=== PATIENT | male | born 1975 | race Two or more races ===

== ENCOUNTER 2022-11-07 08:30 | Emergency (ER) | payer OTHER ==
[~2022-11-07] VITALS: Ht 167.6 cm; Wt 97.5 kg
--- NOTE | 2022-11-07 09:03 | NUR ---
PHLEB AT BEDSIDE FOR BLOOD DRAW
--- NOTE | 2022-11-07 09:11 | NUR ---
DR. JOHNSON AT BEDSIDE
[2022-11-07 09:15] LABS: HEMOGLOBIN 13.8 g/dL (13.5-17.5); MONOCYTES # (AUTO) 0.9 K/uL (0.1-1.30)
[2022-11-07] MEDS ORDERED: GABAPENTIN 100 MG CAPSULE ONE (09:25)
[2022-11-07 09:27] LABS: CALCIUM, SERUM 8.8 mg/dL (8.5-10.1); CARBON DIOXIDE 28 mmol/L (21-32); CHLORIDE 101 mmol/L (98-107); GLUCOSE 138 mg/dL (74-106); POTASSIUM 3.8 mmol/L (3.5-5.1); SODIUM SERUM 136 mmol/L (136-145); UREA NITROGEN, BLOOD 16 mg/dL (7-18)
[2022-11-07] MEDS ORDERED: GABAPENTIN 100 MG CAPSULE PO ONE (09:30)
--- NOTE | 2022-11-07 09:38 | NUR ---
PIPE INSULATOR AT BEDSIDE FOR XRAY
[2022-11-07 09:51] LABS: ALANINE AMINOTRANSFERASE 29 U/L (12-78); ALBUMIN 3.6 g/dL (3.4-5.0); ALKALINE PHOSPHATASE 92 U/L (46-116); ASPARTATE AMINOTRANSFERASE 25 U/L (15-37); BILIRUBIN,DIRECT 0.1 mg/dL (0.0-0.2); BILIRUBIN,TOTAL 0.2 mg/dL (0.2-1.0); TOTAL PROTEIN, SERUM 7.6 g/dL (6.4-8.2)
[2022-11-07 11:41] LABS: BASOPHILS % (AUTO) 0.3 % (0.0-2.0); EOSINOPHILS % (AUTO) 2.6 % (0.0-6.0); HEMATOCRIT 43 % (39-51); LYMPHOCYTES # (AUTO) 2.4 K/uL (0.8-4.8); LYMPHOCYTES % (AUTO) 23.2 % (20.0-44.0); MEAN CORPUSCULAR HGB CONC 32 g/dl (31.0-36.0); MEAN CORPUSCULAR VOLUME 92 fL (80-96); MONOCYTES % (AUTO) 8.9 % (2.0-12.0); NEUTROPHILS # (AUTO) 6.6 K/uL (1.8-8.9); PLATELET COUNT (AUTO) 235 K/uL (150-450); RED BLOOD CELL COUNT(AUTO) 4.61 MIL/uL (4.5-6.0); WHITE BLOOD COUNT (AUTO) 10.1 K/uL (4.3-11.0)
[2022-11-07] MEDS ORDERED: ATOR40TA PO (12:11)
[2022-11-07] MEDS ORDERED: GABA-536 PO (12:11)
[2022-11-07 12:35] VITALS: BP 139/72
== END 2022-11-07 12:36 | disposition home or self-care (01) ==
LOC: ER 09:26
DX: G62.9 Polyneuropathy, unspecified (principal); R60.0 Localized edema; F17.210 Nicotine dependence, cigarettes, uncomplicated; J45.909 Unspecified asthma, uncomplicated; Z60.2 Problems related to living alone; Z79.899 Other long term (current) drug therapy
CPT/HCPCS: 36415; 71045-TC; 73610-TC; 80048-TC; 80076-TC; 83880; 84484-TC; 85025-TC; 85730-TC

== ENCOUNTER 2023-04-28 18:40 | Inpatient (IN) | payer OTHER ==
[~2023-04-28] VITALS: Ht 170.2 cm; Wt 98.4 kg
[~2023-04-28 18:40] MED LIST: ATOR40TA PO; GABA-536 PO
[2023-04-28] MEDS ORDERED: methylPREDNISolone SOD SUCC 125 MG/2ML VIAL ONE (19:27)
[2023-04-28] MEDS ORDERED: methylPREDNISolone SOD SUCC 125 MG/2ML VIAL IV ONE (19:30)
[2023-04-28] MEDS ORDERED: IPRATROPIUM NEB FS 0.5 MG/2.5 ML AMPUL.NEB NEB ONE (19:30)
[2023-04-28] MEDS ORDERED: Magnesium 1GM/D5W 100ML PREMIX 200 ML IV ONE (19:30)
[2023-04-28] MEDS ORDERED: ALBUTEROL FS 2.5 MG/3 ML VIAL.NEB CONTNEB ONE (19:30)
[2023-04-28] MEDS ORDERED: Magnesium 1GM/D5W 100ML PREMIX 100 ML IV ONE (19:33)
[2023-04-28] MEDS ORDERED: ALBUTEROL FS 2.5 MG/3 ML VIAL.NEB ONE (19:35)
[2023-04-28] MEDS ORDERED: IPRATROPIUM NEB FS 0.5 MG/2.5 ML AMPUL.NEB ONE (19:36)
[2023-04-28 19:38] VITALS: O2SAT 91
--- NOTE | 2023-04-28 19:45 | NUR ---
COVID SWAB COLLECTED AND SENT TO LAB.
--- NOTE | 2023-04-28 19:53 | NUR ---
23G LEFT HAND STARTED BLOOD DRAWN
[2023-04-28 20:00] LABS: ABG BASE EXCESS 2.6 mmol/L; ABG OXYGEN SATURATION 95.1 % (92.0-98.5); ABG PCO2 55.5 mmHg (35.0-45.0); ABG PH 7.345 (7.350-7.450); ABG PO2 93.8 mmHg (75.0-100.0); COHb 1.8 % (0.5-1.5); MetHb 0.2 % (0.0-1.5); O2Hb 93.2 % (94.0-97.0); SITE, ABG Right Radial
[2023-04-28 20:06] LABS: BASOPHILS # (AUTO) 0.1 K/uL (0.0-0.2); BASOPHILS % (AUTO) 0.8 % (0.0-2.0); EOSINOPHILS % (AUTO) 4.2 % (0.0-6.0); HEMATOCRIT 44 % (39-51); HEMOGLOBIN 14.2 g/dL (13.5-17.5); LYMPHOCYTES # (AUTO) 2.7 K/uL (0.8-4.8); LYMPHOCYTES % (AUTO) 24.8 % (20.0-44.0); MEAN CORPUSCULAR HGB CONC 33 g/dl (31.0-36.0); MEAN CORPUSCULAR VOLUME 91 fL (80-96); MONOCYTES # (AUTO) 1.1 K/uL (0.1-1.30); NEUTROPHILS # (AUTO) 6.7 K/uL (1.8-8.9); NEUTROPHILS % (AUTO) 60.2 % (43.0-81.0); PLATELET COUNT (AUTO) 259 K/uL (150-450); RED BLOOD CELL COUNT(AUTO) 4.76 MIL/uL (4.5-6.0); WHITE BLOOD COUNT (AUTO) 11.1 K/uL (4.3-11.0)
[2023-04-28 20:18] LABS: CALCIUM, SERUM 9.4 mg/dL (8.5-10.1); CARBON DIOXIDE 27 mmol/L (21-32); CHLORIDE 102 mmol/L (98-107); CREATININE 0.8 mg/dL (0.6-1.3); GLUCOSE 109 mg/dL (74-106); POTASSIUM 4.5 mmol/L (3.5-5.1); SODIUM SERUM 140 mmol/L (136-145); UREA NITROGEN, BLOOD 17 mg/dL (7-18)
[2023-04-28 20:31] LABS: ALANINE AMINOTRANSFERASE 37 U/L (12-78); ALBUMIN 3.6 g/dL (3.4-5.0); ALKALINE PHOSPHATASE 95 U/L (46-116); ASPARTATE AMINOTRANSFERASE 27 U/L (15-37); BILIRUBIN,DIRECT 0.1 mg/dL (0.0-0.2); BILIRUBIN,TOTAL 0.2 mg/dL (0.2-1.0); TOTAL PROTEIN, SERUM 7.8 g/dL (6.4-8.2)
[2023-04-28 20:38] VITALS: O2SAT 93
--- NOTE | 2023-04-28 20:38 | NUR ---
REPORT GIVEN TO ADELINA JAMESON.
[2023-04-28 22:30] VITALS: BP 125/80; TEMP 97.8; O2SAT 94
[2023-04-28] MEDS ORDERED: dexaMETHasone SOD PHOSPHATE 10 MG/ML VIAL IV PRN (22:30)
[2023-04-28] MEDS ORDERED: ONDANSETRON HCL/PF 4 MG/2 ML VIAL IVP PRN (22:30)
[2023-04-28] MEDS ORDERED: IPRATROPIUM NEB FS 0.5 MG/2.5 ML AMPUL.NEB NEB PRN (22:30)
[2023-04-28] MEDS ORDERED: ALBUTEROL FS 2.5 MG/3 ML VIAL.NEB NEB PRN (22:30)
[2023-04-28] MEDS ORDERED: HYDROCODONE/APAP 10/325MG TABLET PO PRN (22:30)
[2023-04-28] MEDS ORDERED: ACETAMINOPHEN 325 MG TABLET PO PRN (22:30)
[2023-04-28] MEDS ORDERED: HYDROCODONE/APAP 5/325MG TABLET PO PRN (22:30)
[2023-04-28] MEDS ORDERED: TEMAZEPAM 15 MG CAPSULE PO PRN (22:30)
[2023-04-28] MEDS ORDERED: MAG HYDROX/AL HYDROX/SIMETH 30 ML UDC PO PRN (22:30)
[2023-04-28] MEDS ORDERED: Z GUARD REMEDY 4 OZ OINT TP PRN (22:30)
[2023-04-28] MEDS ORDERED: MAGNESIUM HYDROXIDE 30 ML UDC PO PRN (22:30)
[2023-04-28 22:35] VITALS: BP 125/80; TEMP 97.8; O2SAT 94
--- NOTE | 2023-04-28 22:35 | NUR ---
TRANSFERRED TO ROOM VIA ACLS PROTOCOL
--- NOTE | 2023-04-28 22:35 | NUR ---
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 AMBULATORY, ALERT/ORIENTED X4. EXERTIONAL SOB AT TIMES. 02 3.5 L VIA NC MAINTAINED. NEED SALESPERSON RECREATIONAL VEHICLES NOT ABLE TO PROVIDE ADMISSION INFORMATION IN [place]. CAME. ABLE TO TRANSLATE. INFO PROVIDED. ORIENTED TO ROOM FACILITIES, DISCUSSED PLAN OF CARE AND MEDICATION REGIMEN, APPEARS TO UNDERSTAND.. ENCOURAGED TO SPACE ACTIVITIES, AND CALL STAFF FOR FURTHER NEEDS AND DISCOMFORTS. CALL LIGHT WITHIN REACH, CONTINUED MONITORING. SR AT RATE 62.
--- NOTE | 2023-04-28 23:45 | NUR ---
DESIGN LEAD BROUGHT FOOD FROM OUTSIDE. PT ATE WELL.
[2023-04-28] MEDS: ENOXAPARIN SODIUM 40 MG/0.4 ML DISP.SYRIN SQ SCH (23:55)
[2023-04-29] VITALS (8 sets, daily range): BP systolic 96–129; BP diastolic 56–85; TEMP 97.8–98; O2SAT 94–97
[2023-04-29 05:53] LABS: BASOPHILS % (AUTO) 0.3 % (0.0-2.0); HEMATOCRIT 42 % (39-51); HEMOGLOBIN 13.8 g/dL (13.5-17.5); LYMPHOCYTES # (AUTO) 0.9 K/uL (0.8-4.8); LYMPHOCYTES % (AUTO) 8.9 % (20.0-44.0); MEAN CORPUSCULAR HGB CONC 33 g/dl (31.0-36.0); MEAN CORPUSCULAR VOLUME 92 fL (80-96); MONOCYTES # (AUTO) 0.3 K/uL (0.1-1.30); MONOCYTES % (AUTO) 2.9 % (2.0-12.0); NEUTROPHILS # (AUTO) 8.8 K/uL (1.8-8.9); NEUTROPHILS % (AUTO) 87.9 % (43.0-81.0); PLATELET COUNT (AUTO) 233 K/uL (150-450); RED BLOOD CELL COUNT(AUTO) 4.59 MIL/uL (4.5-6.0); WHITE BLOOD COUNT (AUTO) 10.1 K/uL (4.3-11.0)
[2023-04-29 06:15] LABS: CALCIUM, SERUM 9.5 mg/dL (8.5-10.1); MAGNESIUM 2.2 mg/dL (1.8-2.4); PHOSPHORUS 2.2 mg/dL (2.5-4.9); POTASSIUM 4.7 mmol/L (3.5-5.1)
--- NOTE | 2023-04-29 06:42 | NUR ---
CARE SPECIALIST CLOSING NOTES LEFT PATIENT IN BED AWAKE. ON NC AT 3.5L, WITH NO SIGNS OF RESPIRATORY DISTRESS. ON TELEMETRY MONITORING WITH A CURRENT READING OF SINUS RHYTHM WITH A HEART RATE OF 66. NO CARDIAC DISTRESS VOICED. WITH HEPLOCK ON R HAND #22G. ABLE TO MAKE NEEDS KNOWN. SAFETY MEASURES MAINTAINED AT ALL TIMES. WILL ENDORSE TO THE INCOMING NURSE.
--- NOTE | 2023-04-29 07:25 | NUR ---
GREEN BUILDING ENGINEER OPENING NOTE Received patient in bed, awake. A/O x 4, able to make needs known. On O2 via nc at 3.5lpm, tolerating well, no sob. IV access in the left hand #22g, sl. On tele monitor with current reading of SB-56. Safety measures maintained: bed in lowest locked position, side rails up x 2, call light and tray table within easy reach. Will continue to monitor.
[2023-04-29] MEDS: PANTOPRAZOLE 40 MG TABLET.DR PO SCH (07:52)
[2023-04-29] MEDS ORDERED: methylPREDNISolone SOD SUCC 40 MG/ML VIAL IV SCH (10:00)
[2023-04-29] MEDS ORDERED: FLUTICASONE/SALMETEROL DISKUS IH SCH (10:00)
[2023-04-29] MEDS ORDERED: ALBUTEROL HFA INH (11:37)
[2023-04-29] MEDS ORDERED: METH10TA2 PO (11:37)
--- NOTE | 2023-04-29 12:00 | NUR ---
RN NOTE Called [facility] and spoke with Jalyn, she said to fax medical release form to at [phone]. Signed medical release faxed.
[2023-04-29] MEDS: methylPREDNISolone SOD SUCC 40 MG/ML VIAL IV SCH ×2 (12:04→20:24)
--- NOTE | 2023-04-29 13:00 | NUR ---
RN NOTE Called pharmacy and they were able to verify Methadone dose.
[2023-04-29] MEDS: METHADONE HCL 10 MG TABLET PO SCH (13:14)
--- NOTE | 2023-04-29 13:29 | NUR ---
RN NOTE Methadone HCL 115mg/11.5 tab po given, .5 tab wasted and witnessed by ADELINA Goodman.
--- NOTE | 2023-04-29 13:30 | NUR ---
RN NOTE WITNESS ADELINA NAVA WASTED 0.5 TABLET OF METHADONE
[2023-04-29] MEDS ORDERED: NEUTRA PHOS 1 POWD.PACKET PO ONE (15:00)
--- NOTE | 2023-04-29 18:40 | NUR ---
EPIC KALEIDOSCOPE ANALYST CLOSING NOTE Patient resting in bed. A/O x 4, no c/o pain/discomfort at this time. On room air, tolerating well. IV access in the left hand #22g, sl. On tele monitor with current reading of SR-92. Needs attended. Safety measures maintained: bed in lowest locked position, side rails up x 2, call light and tray table within easy reach. Will endorse chin to maintenance supervisor 2nd shift. Addendum: 04/29/23 at 1848 by Shell Donnelly RN Correction.. Pt on O2 via nc at 3.5lpm.
--- NOTE | 2023-04-29 19:40 | NUR ---
TROPHY ASSEMBLER OPENING NOTES RECEIVED PT IN BED, AWAKE, A/O X4, ABLE TO MAKE NEEDS KNOWN. ON 3.5L O2 VIA NC, TOLERATING WELL, DENIES SOB AND AT THIS TIME. IV ACCESS ON LEFT HANG 22G, SL, PATENT, INTACT AND INFUSING WELL. ON TELE MONITOR WITH CURRENT READING OF SR, 74BPM. NO S/S OF ACUTE DISTRESS ATH THIS TIME. SAFETY PRECAUTIONS IN PLACED: BED AT LOWEST AND LOCKED POSITION, SIDE RAILS UP X2, CALL LIGHT WITHIN REACH. WILL CONTINUE TO MONITOR PT.
[2023-04-29] MEDS: ALBUTEROL FS 2.5 MG/0.5 ML VIAL.NEB NEB SCH (20:23)
[2023-04-29] MEDS ORDERED: ATORVASTATIN 10 MG TABLET PO SCH (22:00)
[2023-04-29] MEDS: ENOXAPARIN SODIUM 40 MG/0.4 ML DISP.SYRIN SQ SCH (22:26)
[2023-04-30] VITALS (9 sets, daily range): BP systolic 114–135; BP diastolic 70–81; TEMP 97.6–99.3; O2SAT 93–98
[2023-04-30] MEDS: ALBUTEROL FS 2.5 MG/0.5 ML VIAL.NEB NEB SCH ×5 (01:30→19:30)
[2023-04-30] MEDS: methylPREDNISolone SOD SUCC 40 MG/ML VIAL IV SCH ×2 (04:00→12:00)
[2023-04-30 05:49] LABS: BASOPHILS % (AUTO) 0.1 % (0.0-2.0); EOSINOPHILS % (AUTO) 0.5 % (0.0-6.0); HEMATOCRIT 44 % (39-51); HEMOGLOBIN 14.1 g/dL (13.5-17.5); LYMPHOCYTES # (AUTO) 1.6 K/uL (0.8-4.8); LYMPHOCYTES % (AUTO) 7.7 % (20.0-44.0); MEAN CORPUSCULAR HGB CONC 32 g/dl (31.0-36.0); MEAN CORPUSCULAR VOLUME 94 fL (80-96); MONOCYTES # (AUTO) 0.8 K/uL (0.1-1.30); NEUTROPHILS # (AUTO) 18.6 K/uL (1.8-8.9); NEUTROPHILS % (AUTO) 87.7 % (43.0-81.0); PLATELET COUNT (AUTO) 244 K/uL (150-450); RED BLOOD CELL COUNT(AUTO) 4.72 MIL/uL (4.5-6.0); WHITE BLOOD COUNT (AUTO) 21.2 K/uL (4.3-11.0)
--- NOTE | 2023-04-30 06:32 | NUR ---
TRAFFIC LIEUTENANT NOTE [facility] CALLED REGARDING MEDICAL RELEASE FORM THAT WAS FAXED TO THEM, STATED FORM DID NOT STATE WHAT INFORMATION WE NEEDED. LOOKED AT NOTES BUT DAYSHIFT RN DID NOT DOCUMENT WHAT INFO IS NEEDED. STATED SHE WILL CALL BACK AT 9 AM. SHE VERIFIED THAT PATIENT IS ON METHADONE 115 MG
--- NOTE | 2023-04-30 06:51 | NUR ---
BERNY RN CLOSING NOTES PT IN BED, ASLEEP, EASILY AROUSABLE BY NAME, A/O X4, ABLE TO MAKE NEEDS KNOWN. ON 3.5L O2 VIA NC, TOLERATING WELL, DENIES SOB AND AT THIS TIME. IV ACCESS ON LEFT HANG 22G, SL, PATENT, INTACT AND FLUSHING WELL. ON TELE MONITOR WITH CURRENT READING OF SINUS SOURAV, 54 BUT CAN GO LOW 49. NO S/S OF ACUTE DISTRESS AT THIS TIME. ALL DUE MEDS GIVEN, ALL NEEDS ATTENDED. NO EPISODE OF DISTRESS AT THIS SHIFT. SAFETY PRECAUTIONS IN PLACED: BED AT LOWEST AND LOCKED POSITION, SIDE RAILS UP X2, CALL LIGHT AND TABLE WITHIN REACH. WILL ENDORSE PT TO NEXT SHIFT NURSE FOR CHELE.
--- NOTE | 2023-04-30 07:06 | NUR ---
INFORMATION SENT:FACESHEET,24 HRS REPORT,DC PLANNING,PROGRESS NOTES-04/29,CONSULTATION,PSF INSURANCE NAME:[facility] [employer] /AUTH# [id number] FAX NO:[phone] [place] NAME:ANNIE FAX NO:[phone] NO OF PAGES:20 FAX SENT BY:MEGAN
--- NOTE | 2023-04-30 07:15 | NUR ---
ms rn patient is alert,oriented x4,came in w/ asthma exacerbation, denies pain at this tie, on o2 2 liters ,saturating well. ambulatory/independent, no fever,no nausea, tolerating diet well, no sob noted. abdomen soft, positive bowel sounds, will monitor patient.all needs attended.
[2023-04-30] MEDS: BUDESONIDE RESPULE INH 0.25 MG/2 ML AMPUL.NEB NEB SCH ×2 (07:53→14:20)
--- NOTE | 2023-04-30 08:30 | NUR ---
RN NOTE WITNESSED BRANDY Mahoney RN WASTED 5MG OF METHADONE.
[2023-04-30] MEDS: PANTOPRAZOLE 40 MG TABLET.DR PO SCH (08:31)
[2023-04-30] MEDS: METHADONE HCL 10 MG TABLET PO SCH (08:37)
--- NOTE | 2023-04-30 09:00 | NUR ---
ms lopez breakfast served,due meds given, all needs attended.
[2023-04-30 09:46] LABS: ALBUMIN 3.7 g/dL (3.4-5.0); BILIRUBIN,TOTAL 0.2 mg/dL (0.2-1.0); CALCIUM, SERUM 9.4 mg/dL (8.5-10.1); CREATININE 0.8 mg/dL (0.6-1.3); MAGNESIUM 2.3 mg/dL (1.8-2.4); POTASSIUM 4.5 mmol/L (3.5-5.1)
--- NOTE | 2023-04-30 12:00 | NUR ---
ms rn prednisone ,not available, will notify .
[2023-04-30] MEDS ORDERED: ALBU8.5H8 INH (13:49)
[2023-04-30] MEDS ORDERED: ALBU1.257 NEB (13:49)
[2023-04-30] MEDS ORDERED: FLUT1DIS INH (13:49)
[2023-04-30] MEDS ORDERED: METH4TAB3 PO (13:49)
[2023-04-30] MEDS ORDERED: IPRA0.2S49 NEB (17:13)
--- NOTE | 2023-04-30 17:20 | NUR ---
ms rn patient will be discharge home once nebulizer/ breathing tx machine is delivered.all needs attended.
--- NOTE | 2023-04-30 19:00 | NUR ---
ms lopez nebulizer delivered, patient went home via uber, instructions given and understood,all needs attended.
== END 2023-04-30 19:10 | disposition home or self-care (01) | DRG 141 ==
LOC: ER 18:43 → TELE 20:28 → MED 04-30 12:50
PROVIDERS: ADMIT Nurse Practitioner Acute Care; ATTEND Nurse Practitioner Family
DX: J45.901 Unspecified asthma with (acute) exacerbation (principal); J96.02 Acute respiratory failure with hypercapnia; D72.829 Elevated white blood cell count, unspecified; E66.9 Obesity, unspecified; E78.5 Hyperlipidemia, unspecified; F17.210 Nicotine dependence, cigarettes, uncomplicated; R60.9 Edema, unspecified; Z20.822 Contact with and (suspected) exposure to COVID-19; Z68.34 Body mass index [BMI] 34.0-34.9, adult; R73.9 Hyperglycemia, unspecified; I87.2 Venous insufficiency (chronic) (peripheral); F11.20 Opioid dependence, uncomplicated; Z82.49 Family history of ischemic heart disease and other diseases of the circulatory system
CPT/HCPCS: 36415; 36600; 71045-TC; 80048-TC; 80053-TC; 80061-TC; 80076-TC; 82803-TC; 83735-TC; 83880; 84100-TC; 84484-TC; 85025-TC; 93307-TC; 93970-TC; 94799-TC; A4223; G0378; J1650; J2920; J2930; J3475